=== PATIENT | female | born 1990 | race Hispanic/Latino ===

== ENCOUNTER 2016-08-05 01:21 | Emergency (ER) | payer OTHER ==
[2016-08-05 01:33] VITALS: BP 132/80; PULSE 78; RESP 16; TEMP 97.5; O2SAT 100
--- NOTE | 2016-08-05 01:49 | C.PDOC ---
History Of Present Illness 25 year old patient presents to the ED complaining of a laceration to the right hand while using a kitchen knife prior to arrival. Patient states she applied pressure, but the bleeding continued. Patient denies any numbness or weakness. Chief Complaint (Nursing): Abnormal Skin Integrity History Per: Patient History/Exam Limitations: no limitations Onset/Duration Of Symptoms: Hrs (prior to arrival) Current Symptoms Are (Timing): Still Present Quality Of Symptoms: Painful, Other Severity: Mild Pain Scale Rating Of: 3 Recent travel outside of the [place]: No Past Medical History Reviewed: Historical Data, Nursing Documentation, Vital Signs Vital Signs: Last Vital Signs Temp 97.5 F L 08/05/16 01:30 Pulse 78 08/05/16 01:30 Resp 16 08/05/16 01:30 BP 132/80 08/05/16 01:30 Pulse Ox 100 08/05/16 02:36 Family History: States: Unknown Family Hx - Social History Hx Alcohol Use: No Hx Substance Use: No - Immunization History Hx Tetanus Toxoid Vaccination: No Hx Influenza Vaccination: No Hx Pneumococcal Vaccination: No Review Of Systems Except As Marked, All Systems Reviewed And Found Negative. Musculoskeletal: Positive for: Hand Pain (right) Skin: Positive for: Other (laceration to right hand 3rd finger) Neurological: Negative for: Weakness, Numbness Physical Exam - Physical Exam Appears: Non-toxic, No Acute Distress Skin: Warm, Dry, Other (1 cm superficial laceration to the right 3rd finger, no deformities, no change in sensation, good strength, normal ROM, good radial pulse, <2 seconds capillary refill) Cardiovascular: Rhythm Regular Extremity: Normal ROM, Capillary Refill (<2 seconds), No Deformity, No Swelling Neurological/Psych: Oriented x3, Normal Motor, Normal Sensation Gait: Steady ED Course And Treatment O2 Sat by Pulse Oximetry: 100 (room air) Pulse Ox Interpretation: Normal Progress Note: Patient tolerated the procedure well. Patient reports she thinks her Tetanus is up to date. Patient is instructed to return to the ED in 2 days for wound check. Laceration - Laceration Repair right 3rd finger Wound Length (In cm): 1 Description Of Wound: Linear Wound Cleansed With: Betadine, Sterile Saline Anesthesia: Lidocaine 1% Wound Examination: Irrigated With Saline, No FB With Wound Exploration, No Tendon Injury With Wound Exploration Wound Debridement/Revision: Wound Margins Revised Wound Closure: Suture (2) Suture Technique And Material Used: Prolene (4-0) Wound Complexity: Simple Disposition Counseled Patient/Family Regarding: Diagnosis, Need For Followup, Rx Given - Disposition Disposition: HOME/ ROUTINE Disposition Time: 02:31 Condition: STABLE Additional Instructions: Please follow up with PMD in 2 dyas for wound check Suture removal in 8-10 days Keep wound clean and dry/ May apply antibacterial ointment Return to ER if worse Instructions: Care For Your Stitches (ED) Forms: [employer] (E[place]ian), Work Excuse - Clinical Impression Clinical Impression: 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 - Scribe Statement The provider has reviewed the documentation as recorded by the Scribe Shona Ambriz All medical record entries made by the Scribe were at my direction and personally dictated by me. I have reviewed the chart and agree that the record accurately reflects my personal performance of the history, physical exam, medical decision making, and the department course for this patient. I have also personally directed, reviewed, and agree with the discharge instructions and disposition.
[2016-08-05] MEDS ORDERED: Bacitracin 500 Units/gm Oint Foilpak UD ONE (01:52)
[2016-08-05] MEDS ORDERED: Lidocaine 1% Inj (20ml) ONE (01:52)
== END 2016-08-05 02:59 | disposition home or self-care (01) ==
LOC: C.ER 01:21
DX: S61.212A Laceration without foreign body of right middle finger without damage to nail, initial encounter (principal); W26.0XXA Contact with knife, initial encounter